=== PATIENT | female | born 1965 ===

== ENCOUNTER 2019-05-20 12:04 | Emergency (ER) | END 2019-05-20 14:08 | disposition home or self-care (01) | DX: S16.1XXA Strain of muscle, fascia and tendon at neck level, initial encounter (principal); S33.5XXA Sprain of ligaments of lumbar spine, initial encounter; R51 Headache; D32.9 Benign neoplasm of meninges, unspecified; E78.5 Hyperlipidemia, unspecified; Z79.899 Other long term (current) drug therapy; V43.52XA Car driver injured in collision with other type car in traffic accident, initial encounter; Y93.89 Activity, other specified; Y92.410 Unspecified street and highway as the place of occurrence of the external cause; Y99.8 Other external cause status ==

== ENCOUNTER 2021-06-02 18:21 | Emergency (ER) | payer MEDICAID ==
[~2021-06-02] VITALS: Ht 165.1 cm; Wt 97.5 kg
[~2021-06-02 18:21] MED LIST: ATOR20TA PO; AZAT50TA PO; CHOL10002 PO; CYCLOSPORINE PO
[2021-06-02] MEDS ORDERED: CALC500T52 PO (18:48)
[2021-06-02] MEDS ORDERED: CYCLOSPORINE PO ×2 (18:48)
[2021-06-02] MEDS ORDERED: LOSA50TA39 PO (18:48)
[2021-06-02] MEDS ORDERED: ONDANSETRON ODT 4 MG TAB.RAPDIS SL ONE (19:15)
[2021-06-02] MEDS ORDERED: HYDROMORPHONE 1 MG/1 ML DISP.SYRIN IM ONE (19:15)
[2021-06-02] MEDS ORDERED: ONDANSETRON ODT 4 MG TAB.RAPDIS ONE (19:19)
[2021-06-02] MEDS ORDERED: HYDROMORPHONE 1 MG/1 ML DISP.SYRIN ONE (19:20)
[2021-06-02] MEDS ORDERED: CARI350T PO (19:31)
[2021-06-02] MEDS ORDERED: HYDR-4209 PO (19:31)
--- NOTE | 2021-06-02 19:40 | NUR ---
Patient discharged to home in stable condition. Written and verbal after care instructions given. Patient verbalizes understanding of instructions. Stressed follow up or return to ER for worsening s/s. pt ambulatory denies pain, pt with steady gait.
[2021-06-02 19:41] VITALS: BP 130/70
== END 2021-06-02 19:42 | disposition home or self-care (01) ==
LOC: ER 18:27
DX: M54.42 Lumbago with sciatica, left side (principal); Z94.0 Kidney transplant status; E78.5 Hyperlipidemia, unspecified
CPT/HCPCS: 96372; 99283; J1170; A4663; Q0162